=== PATIENT | female | born 1965 | race Hispanic/Latino ===

== ENCOUNTER 2022-03-30 13:39 | Emergency (ER) | payer MEDICAID ==
--- NOTE | 2022-03-30 14:39 | XRay Report ---
CHEST 2 VIEWS INDICATION: cp. COMPARISON: 04/04/2016 FINDINGS: SUPPORT DEVICES: None. HEART: Within normal limits. LUNGS/PLEURA: No acute air space or interstitial disease. No pneumothorax. ADDITIONAL FINDINGS: None. IMPRESSION: 1. No acute findings. Signer Name: Vishnu Aguilar MD Signed: 03/30/2022 2:34 PM Workstation Name: [id number]
[2022-03-30 15:00] LABS: Eosinophils # (Auto) 0.3 K/mm3 (0.0-0.4); Hematocrit 38.4 % (30.3-42.9); Hemoglobin 12.5 gm/dl (10.1-14.3); Lymphocytes # (Auto) 3.5 K/mm3 (1.2-5.4); Lymphocytes % (Auto) 40.1 % (13.4-35.0); Mean Corpuscular HGB Conc 32 % (30-34); Mean Corpuscular Volume 89 fl (79-97); Monocytes # (Auto) 0.5 K/mm3 (0.0-0.8); Platelet Count 263 K/mm3 (140-440); Red Blood Count 4.34 M/mm3 (3.65-5.03); Red Cell Distribution Width 12.5 % (13.2-15.2)
[2022-03-30 15:01] LABS: Basophils % (Auto) 0.5 % (0.0-1.8)
[2022-03-30 15:14] LABS: Alanine Aminotransferase 33 units/L (7-56); Albumin 4.5 g/dL (3.9-5); Blood Urea Nitrogen 9 mg/dL (7-17); Calcium 9.4 mg/dL (8.4-10.2); Hemolysis Index 6
[2022-03-30 15:22] LABS: BUN/Creatinine Ratio 18
[2022-03-31] MEDS ORDERED: IPRATROPIUM 0.02% NEBU 2.5 ML IH ONE (01:57)
[2022-03-31] MEDS ORDERED: ALBUTEROL 2.5 MG/3 ML NEBU IH ONE (01:57)
--- NOTE | 2022-03-31 02:02 | Emergency Department Report ---
ED General Adult HPI - General Chief complaint: Chest Pain Stated complaint: CHEST PAIN Time Seen by Provider: 03/31/22 01:38 Source: patient Mode of arrival: Ambulatory Limitations: No Limitations - History of Present Illness Initial comments: Patient is 56 years old female with history of asthma and hypertension. Patient presented to the ER complaining of cough, productive with greenish sputum for the last 3 weeks. Patient stated that when she coughs her chest hurts. She described her chest pain as sharp with no radiation., Diffuse. Patient denies any fever or chills. No shortness of breath. Patient also stated that she is out of her albuterol inhaler. - Related Data Previous Rx's Medication Instructions Recorded Last Taken Type Albuterol Mdi (or & Nicu Only) 2 puff IH QID PRN #1 tube 07/06/15 Unknown Rx [ProAir HFA Inhaler] Azithromycin [Zithromax Z-HUMBERTO] 1 dose PO DAILY #1 pack 07/06/15 Unknown Rx Omeprazole Magnesium [PriLOSEC Otc] 20 mg PO BID #1 box 07/06/15 Unknown Rx Dicyclomine [Bentyl] 10 mg PO QID PRN #20 capsule 04/04/16 Unknown Rx Ipratropium [place] [Atrovent Hfa] 12.9 gm IH Q4HR #2 hfa.aer.ad 04/04/16 Unknown Rx Pantoprazole [Protonix TAB] 20 mg PO QDAY #30 tablet. 04/04/16 Unknown Rx Allergies Allergy/AdvReac Type Severity Reaction Status Date / Time No Known Allergies Allergy Verified 03/30/22 13:58 ED Review of Systems ROS: Stated complaint: CHEST PAIN Other details as noted in HPI Comment: All other systems reviewed and negative Constitutional: denies: chills, fever Respiratory: cough, wheezing. denies: shortness of breath, SOB with exertion, SOB at rest Cardiovascular: chest pain. denies: palpitations Gastrointestinal: denies: abdominal pain, nausea, vomiting, diarrhea, constipation, hematemesis, melena, hematochezia Musculoskeletal: denies: back pain Neurological: denies: headache, weakness, numbness, paresthesias, confusion, abnormal gait ED Past Medical Hx - Past Medical History Hx Hypertension: Yes (stopped taking meds 2014) Hx Liver Disease: Yes Hx Asthma: Yes - Surgical History Additional Surgical History: Hysterectomy - Social History Smoking Status: Current Every Day Smoker Substance Use Type: None - Medications Home Medications: Home Medications Medication Instructions Recorded Confirmed Last Taken Type Albuterol Mdi (or & Nicu Only) 2 puff IH QID PRN #1 tube 07/06/15 Unknown Rx [ProAir HFA Inhaler] Azithromycin [Zithromax Z-HUMBERTO] 1 dose PO DAILY #1 pack 07/06/15 Unknown Rx Omeprazole Magnesium [PriLOSEC Otc] 20 mg PO BID #1 box 07/06/15 Unknown Rx Dicyclomine [Bentyl] 10 mg PO QID PRN #20 capsule 04/04/16 Unknown Rx Ipratropium [place] [Atrovent Hfa] 12.9 gm IH Q4HR #2 hfa.aer.ad 04/04/16 Unknown Rx Pantoprazole [Protonix TAB] 20 mg PO QDAY #30 tablet. 04/04/16 Unknown Rx ED Physical Exam - General Limitations: No Limitations General appearance: alert, in no apparent distress - Head Head exam: Present: atraumatic, normocephalic, normal inspection - Eye Eye exam: Present: normal appearance - ENT ENT exam: Present: normal exam, normal orophraynx, mucous membranes moist - Neck Neck exam: Present: normal inspection, full ROM. Absent: tenderness, meningismus - Respiratory Respiratory exam: Present: respiratory distress, wheezes, rhonchi, chest wall tenderness. Absent: rales, accessory muscle use, decreased breath sounds, prolonged expiratory - Cardiovascular Cardiovascular Exam: Present: regular rate, normal rhythm, normal heart sounds - GI/Abdominal GI/Abdominal exam: Present: soft, normal bowel sounds. Absent: distended, tenderness, guarding, rebound, rigid, organomegaly, mass, bruit, pulsatile mass, hernia - Extremities Exam Extremities exam: Present: normal inspection, full ROM, normal capillary refill. Absent: tenderness, pedal edema, joint swelling, calf tenderness - Back Exam Back exam: Present: normal inspection, full ROM. Absent: CVA tenderness (R), CVA tenderness (L) - Neurological Exam Neurological exam: Present: alert, oriented X3, CN II-XII intact, normal gait, reflexes normal. Absent: motor sensory deficit - Psychiatric Psychiatric exam: Present: normal mood - Skin Skin exam: Present: warm, intact, normal color ED Course Vital Signs 03/30/22 13:55 Temperature 98.4 F Pulse Rate 100 H Respiratory 18 Rate Blood Pressure 159/84 [Left] ED Medical Decision Making - Lab Data Result diagrams: 03/30/22 14:37 03/30/22 14:37 - EKG Data -: EKG Interpreted by Me EKG shows normal: sinus rhythm Rate: normal - EKG Data Interpretation: no acute changes - Radiology Data Radiology results: report reviewed - Medical Decision Making Patient is 56 years old female with history of asthma and hypertension. Patient presented to the ER complaining of cough, productive with greenish sputum for the last 3 weeks. Patient stated that when she coughs her chest hurts. She described her chest pain as sharp with no radiation., Diffuse. Patient denies any fever or chills. No shortness of breath. Patient also stated that she is out of her albuterol inhaler. Patient remained stable in the ER with a stable vital sign. EKG is unremarkable with no ST elevation. Chest x-ray is negative for acute finding. Labs reviewed and is unremarkable including a negative troponin x2. Patient chest pain is reproducible is most likely costochondritis secondary to excessive cough. Patient received albuterol and Atrovent in the ER and stated that symptoms improved significantly. Patient was given prescription for erythromycin and Robitussin and albuterol inhaler. Patient advised to follow-up with her primary doctor in the next 2 to 3 days and to return to the ER she develop any symptoms. Critical care attestation.: If time is entered above; I have spent that time in minutes in the direct care of this critically ill patient, excluding procedure time. ED Disposition Clinical Impression: Acute chest pain, Acute bronchitis Disposition: HOME / SELF CARE / HOMELESS Is pt being admited?: No Condition: Stable Instructions: Chest Pain (ED), Acute Bronchitis (ED), Nonspecific Chest Pain, Adult, Acute Bronchitis, Adult, [id number] Referrals: PRIMARY CARE, [Primary Care Provider] - 3-5 Days
[2022-03-31 04:04] VITALS: BP 127/68
--- NOTE | 2022-03-31 10:12 | Electrocardiograph Report ---
[facility] Test Date: 2022-03-30 Test Time: 14:02:42 Pat Name: BLANCA HALEY Department: Room: Gender: [employer] Lab[employer]: KAMLA : 1965 Requested By: VANESA ANDERSON Order Number: [id number] Reading MD: Grayson Ledesma Measurements Intervals [place] Rate: 84 P: 52 SC: 173 QRS: 23 QRSD: 109 T: 20 QT: 381 QTc: 452 Interpretive Statements Sinus rhythm No previous ECG available for comparison Electronically Signed On 03-31-2022 10:11:59 EDT by Grayson Ledesma
== END 2022-03-31 04:03 | disposition home or self-care (01) ==
LOC: ED 13:39
DX: R07.9 Chest pain, unspecified (principal); J20.9 Acute bronchitis, unspecified; F17.200 Nicotine dependence, unspecified, uncomplicated; J45.909 Unspecified asthma, uncomplicated
CPT/HCPCS: 36415; 71046; 80053; 84484; 85025; 93005; 94640; 99284